=== PATIENT | female | born 1985 | race Caucasian/White ===

== ENCOUNTER 2023-10-20 14:37 | Outpatient (REF) | payer OTHER, SELFPAY ==
[2023-10-20 18:01] LABS: MANUAL DIFF FLAG NO
[2023-10-20 18:07] LABS: Basophils Percent Auto 0.7 % (0-2); Eosinophils Absolute Auto 0.1 X10*3/uL (0.0-0.4); Eosinophils Percent Auto 2.2 % (0-4); Hematocrit 37.7 % (37.0-47.0); Hemoglobin 12.8 g/dl (12.0-16.0); Imm Gran Abs Auto 0.02 X10*3/uL (0.00-0.03); Imm Gran Pct Auto 0.3 % (0.0-0.4); Lymphocytes Absolute Auto 1.7 X10*3/uL (1.2-4.9); Lymphocytes Percent Auto 28.4 % (20-40); Mean Corpuscular Hemoglobin 31.1 pg (27.0-33.0); Mean Corpuscular Volume 91.7 fL (80.0-98.0); Monocytes Absolute Auto 0.7 X10*3/uL (0.1-1.2); Monocytes Percent Auto 12.1 % (2-11); Neutrophils Absolute Auto 3.4 x10*3/uL (2.0-8.3); Neutrophils Percent Auto 56.3 % (45-73); Platelet Count 262 X10*3/uL (160-400); Red Blood Count 4.11 X10*6/uL (4.20-5.50); Red Cell Distribution Width 12.4 % (11.0-16.0)
[2023-10-20 20:39] LABS: Alanine Aminotransferase 13 U/L (0-31); Albumin Level 4.4 g/dL (3.5-5.0); Alkaline Phosphatase 48 U/L (39-117); Anion Gap 15 (12-20); Aspartate Amino Transferase 13 U/L (5-31); Bilirubin Total 0.3 mg/dL (0.0-1.0); Blood Urea Nitrogen 14 mg/dL (9-16); Calcium 9.9 mg/dL (8.4-10.2); Carbon Dioxide 27 mmol/L (22-29); Chloride 104 mmol/L (96-108); Estimated Glomerular Filt Rate 59; Ferritin 148 ng/mL (10-122); Free T4 (Free Thyroxine) 0.96 ng/dL (0.71-1.85); Iron 101 mcg/dL (30-160); Percent Iron Saturation 42 % (15-50); Potassium 4.2 mmol/L (3.3-5.1); Sodium 142 mmol/L (135-145); Thyroid Stimulating Hormone 0.53 uIU/mL (0.32-4.0); Total Iron Binding Capacity 243 mcg/dL (228-428); Total Protein 7.7 g/dL (6.5-8.0); Unsaturated Iron Binding 142 ug/dL; Vitamin D 25-OH Total 43.7 ng/mL (>30)
[2023-10-21 15:53] LABS: Glucose Random 56 mg/dL (60-115)
== END 2023-10-20 14:38 | disposition home or self-care (01) ==
LOC: HO.MANLDS 14:37
PROVIDERS: Visit Provider Physician Assistant
DX: D50.0 Iron deficiency anemia secondary to blood loss (chronic) (principal); R53.83 Other fatigue
CPT/HCPCS: 36415; 80053; 82306; 82728; 83540; 84439; 84443; 85025

== ENCOUNTER → 2025-02-14 13:42 | Outpatient (BNVA) | payer SELFPAY | DX: Z11.1 Encounter for screening for respiratory tuberculosis (principal) ==